=== PATIENT | female | born 1950 | race Caucasian/White ===

== ENCOUNTER 2016-03-08 11:18 | Emergency (ER) | payer OTHER ==
[2016-03-08 11:45] VITALS: BP 128/70
--- NOTE | 2016-03-08 12:31 | UC ---
Respiratory Complaint HPI - HPI Summary HPI Summary: 65 year old female complaining of ethmoid sinus pressure and nasal congestion x 7 days. Symptoms improved this weekend, patient began producing more green mucus today which she believed was a indicator of worsening infection. Symptoms alleviated with pseodophed. - History of Current Complaint Chief Complaint: UCRespiratory Stated Complaint: URI Time Seen by Provider: 03/08/16 12:19 Hx Obtained From: Patient ?: No Onset/Duration: Gradual Onset Severity Initially: Moderate Severity Currently: Mild Character: Cough: Nonproductive Aggravating Factors: Nothing - Post-nasal drip, mucus clearance Alleviating Factors: OTC Meds Associated Signs And Symptoms: Positive: URI, Nasal Congestion, Sinus Discomfort - Ethmoid sinuc congestion. Negative: Dyspnea, Fever, Chills, Pleuritic Chest Pain, Wheezing - Risk Factors Pulmonary Embolism Risk Factors: Negative Cardiac Risk Factors: Negative Pseudomonas Risk Factors: Negative Tuberculosis Risk Factors: Negative - Allergies/Home Medications Allergies/Adverse Reactions: Allergies Allergy/AdvReac Type Severity Reaction Status Date / Time Codeine Allergy Vomiting Verified 03/08/16 11:46 Home Medications: Home Medications B-Complex Vitamins [Vitamin B Complex] 1 tab PO 03/08/16 [History] Magnesium [Magnesium] 400 mg PO 03/08/16 [History] [id number] Ethyl Esters (NF) [Lovaza (NF)] 1 gm PO BID 03/08/16 [History Confirmed 03/08/16] Zinc [Zinc Methionate] 50 mg PO 03/08/16 [History] PMH/Surg Hx/FS Hx/Imm Hx Previously Healthy: Yes Endocrine History Of: Reports: Dyslipidemia - "Elevated cholesterol" Denies: Diabetes, Thyroid Disease Cardiovascular History Of: Denies: Cardiac Disorders, Hypertension Respiratory History Of: Denies: COPD, Asthma GI/ History Of: Denies: Ulcer Cancer History Of: Denies: Breast Cancer - Surgical History Surgical History: Yes Surgery Procedure, Year, and Place: D&C,GB REMOVED 1997, bilateral heel spur - Family History Known Family History: Positive: Unknown - Social History Occupation: Employed Full-time Lives: With Family Alcohol Use: Rare Substance Use Type: None Smoking Status (MU): Former Smoker Length of Time of Smoking/Using Tobacco: 2-4 years Have You Smoked in the Last Year: No When Did the Patient Quit Smoking/Using Tobacco: Quit in college Review of Systems Constitutional: Negative Skin: Negative Eyes: Negative ENT: Nasal Discharge Respiratory: Cough Cardiovascular: Negative Gastrointestinal: Negative Genitourinary: Negative Motor: Negative Neurovascular: Negative Musculoskeletal: Negative Neurological: Negative Psychological: Negative All Other Systems Reviewed And Are Negative: Yes Physical Exam Triage Information Reviewed: Yes Appearance: Well-Appearing Vital Signs: Initial Vital Signs Temp 97.8 F 03/08/16 11:41 Pulse 61 03/08/16 11:41 Resp 18 03/08/16 11:41 BP 128/70 03/08/16 11:41 Pulse Ox 100 03/08/16 11:41 Vital Signs Reviewed: Yes Eye Exam: Normal ENT: Positive: Hearing grossly normal, Pharynx normal, Nasal congestion, Nasal drainage, TMs normal Dental Exam: Normal Neck exam: Normal Neck: Positive: Enlarged Nodes @ Respiratory Exam: Normal Respiratory: Positive: Chest non-tender, Lungs clear, Normal breath sounds, No respiratory distress Cardiovascular Exam: Normal Cardiovascular: Positive: RRR, No Murmur, Pulses Normal Abdominal Exam: Normal Abdomen Description: Positive: Nontender, No Organomegaly Bowel Sounds: Positive: Present Musculoskeletal Exam: Normal Musculoskeletal: Positive: Strength Intact Neurological Exam: Normal Neurological: Positive: Alert Psychological Exam: Normal Skin Exam: Normal UC Diagnostic Evaluation - Laboratory O2 Sat by Pulse Oximetry: 100 Respiratory Course/Dx - Differential Dx/Diagnosis Provider Diagnoses: Upper Respiratory Infection Discharge - Discharge Plan Condition: Stable Disposition: HOME Prescriptions: Benzonatate CAP* [Tessalon CAP*] 100 mg PO TID #30 cap Patient Education Materials: Upper Respiratory Infection (ED) Referrals: Baldemar Miranda MD [Primary Care Provider] - If Needed Additional Instructions: Call or return if you develop increasing fever, shortness of breath, chest pain , bloody sputum, or otherwise worsen. If you have not improved at all after several days, contact your primary care physician or return here.
== END 2016-03-08 12:38 | disposition home or self-care (01) ==
LOC: UCEAST 11:18
DX: J06.9 Acute upper respiratory infection, unspecified (principal); Z87.891 Personal history of nicotine dependence
CPT/HCPCS: 99212; G0463